=== PATIENT | male | born 1955 | race Caucasian/White ===

== ENCOUNTER → 2017-12-06 13:01 | Outpatient (CLI) | payer OTHER, SELFPAY ==
[2017-12-06 14:35] LABS: ALB/GLOB Ratio 0.9 RATIO (0.9-2.4); AST(SGOT) 32 U/L (15-37); Alanine Aminotransfer ALT/SGPT 39 U/L (16-61); Albumin, Serum 3.4 g/dL (3.2-5.0); Alkaline Phosphatase 79 U/L (45-117); Anion Gap 10 (5-15); BUN 16 mg/dL (7-18); Calcium,Total 8.5 mg/dL (8.5-10.1); Chloride 105 mmol/L (98-107); Cholesterol 146 mg/dL (200); Creatinine, Serum 1.07 mg/dL (0.70-1.30); EST Glomerular Filtration Rate 75 mL/min (>60); Est Glom Filt Rate - Afr Amer 90 mL/min (>60); Globulin 3.9 g/dL (2.2-4.2); Glucose 96 mg/dL (74-106); High Density Lipoprotein 35 mg/dL; Potassium 3.8 mmol/L (3.5-5.1); Protein, Total 7.3 g/dL (6.4-8.2); Sodium Level 141 mmol/L (136-145); Triglycerides 129 mg/dL; Very Low Density Lipoprotein 26 mg/dL (5-40)
== END ==
PROVIDERS: Family Provider Family Medicine; PCP Family Medicine; Visit Provider Family Medicine
DX: Z00.00 Encounter for general adult medical examination without abnormal findings (principal)
CPT/HCPCS: 36415; 80053; 80061

== ENCOUNTER 2017-12-12 07:06 | Day surgery (SDC) | payer OTHER, SELFPAY ==
[2017-12-12] VITALS (7 sets, daily range): BP systolic 93–119; BP diastolic 69–87; PULSE 67–79; RESP 16–18; TEMP 36.2–37; O2SAT 92–97; BMI 27.6
--- NOTE | 2017-12-12 08:30 | COLBX_PTH ---
PATIENT: SHANITA CABELLO LOC: EN U#:[id number] AGE/SX: 62/M ROOM: RE12/12/[address]: Dr. Art Byrd MD : [id number] BED: DIS: 12/12/2017 SPEC #: [id number] RECD: 12/12/17 10:37 STATUS: KATY MAL #: [id number] MICHELLE: 12/12/17 08:[address]: Art Byrd DEPT: SURGICAL PATHOLOGY RECD BY: Omar Stack ENTERED: 12/12/17 11:08 SP TYPE: COLON BX MARSHALL DR: Dr. Tal Nazario, DO Tissues: Rectum, NOS Procedures: Surgery Specimen Level IV HEADER OPERATION: Colonoscopy (MAC) PRE-OP DIAGNOSIS: Screening TISSUE SUBMITTED: Rectal biopsy MICROSCOPIC DIAGNOSIS Rectal biopsy: Hyperplastic polyp. SJ:[email or web address] 12/13/17 MICROSCOPIC DESCRIPTION Slides are reviewed. GROSS DESCRIPTION Received in fixative is one container labeled with the patient's name and designated rectal biopsy. The specimen consists of two irregular fragments of light aquino soft tissue that in aggregate measure 0.3 x 0.3 x 0.1 cm. The specimen is totally submitted in one cassette. / SJ:eleonora 12/12/17 TC:1 CPT: 17652
--- NOTE | 2017-12-12 09:00 | PCM.HP.STD ---
Problem List (1) Screen for colon cancer Status: Acute History of Present Illness Date of Admission: 12/12/17 The patient is a 62 year old M who presents today for screening colonoscopy. Past Medical History Past Medical History (Chronic Problems): Chronic Problems (Last Reviewed 12/12/17 @ 09:00 by Art Byrd MD) Kidney stones (Chronic) Abnormal glucose (Chronic) Medical History: Medical History (Last Reviewed 12/12/17 @ 09:00 by Art Byrd MD) Kidney stones (Chronic) N20.0 Abnormal glucose (Chronic) R73.09 Allergies Sulfa (Sulfonamide Antibiotics) Allergy (Unknown, Verified 12/12/17 07:22) Unknown Home Medications: Ambulatory Orders Medication Instructions Recorded hydrochlorothiazide 12.5 mg capsule 12.5 mg PO QAM 11/09/17 Smoking Status: Never smoker Tobacco Use: Non-smoker - *Family History Maternal Family History: Family History (Last Reviewed 11/15/17 @ 11:45 by Glendy Michel) Mother Diabetes Father Heart disease Brother Diabetes History Items: No pertinent history Review of Systems Cardiovascular: Denies: Chest Pain, Chest Pressure, Chest Tightness, Palpitations Respiratory: Denies: Cough, Hemoptysis, Shortness of breath at rest, Shortness of breath upon exertion, Wheezing Gastrointestinal: Denies: Abdominal Pain, Constipation, Diarrhea, Hematemesis, Nausea, Melena, Vomiting VTE Information - Inpt Only VTE Present on Admission: No VTE Mechan Device Prophylaxis: None VTE Pharm Prophylaxis ordered?: No Reason prophylaxis not ordered:: Treatment Not Indicated Patient Problems: Active and Suspected Problems (Last Reviewed 12/12/17 @ 09:00 by Art Byrd MD) Screen for colon cancer (Acute) - Physical Exam General: Alert, Oriented x3 Lungs: Clear to auscultation Cardiovascular: Regular rate, Regular Rhythm, No murmurs Abdomen: Bowel Sounds Present, Soft, Non Tender, Non-Distended Vital Signs Temp Pulse Resp BP Pulse Ox 98.6 F 77 16 113/87 H 97 12/12/17 07:24 12/12/17 07:24 12/12/17 07:24 12/12/17 07:24 12/12/17 07:24 Oxygen Delivery Method Room Air Weight: 208 lb 15.971 oz Body Mass Index (BMI) 27.6 Assessment/Plan All Active Problems (Last Reviewed 12/12/17 @ 09:00 by Art Byrd MD) Screen for colon cancer (Acute) Plan will be to perform a colonoscopy on him. Risk benefits are reviewed with him and he agrees to proceed.
--- NOTE | 2017-12-12 09:02 | PCM.OPRPT ---
Problem List (1) Screen for colon cancer Status: Acute Report of Operation Date of Procedure: 12/12/17 Pre-Operative Diagnosis: Z12.11 screening colonoscopy Post-Operative Diagnosis: Same Surgery/Procedure Performed:: Colonoscopy with cold biopsy Type of Anesthesia:: MAC Description of Procedure: Patient was brought into the endoscopy suite. Placed in the left lateral decubitus position. Patient was given graded anesthesia. Colonoscope was inserted into the rectum and directed through the sigmoid colon, descending colon, transverse colon, ascending colon, to the cecum. Operative findings: 1. Cecum: Normal appearance no mass lesions normal ileocecal valve. 2. Ascending colon: Normal appearance no mass lesions. 3. Transverse colon: Normal appearance no mass lesions 4. Descending colon: Normal appearance no mass lesions. 5. Sigmoid colon: Normal appearance no mass lesions. 6. Rectum: Just after the first fold was a small polyp I removed entirely with cold biopsy forceps I had good hemostasis. Scope was withdrawn digital rectal exam was performed showing a smooth prostate with no nodules and no masses in the anus. Patient will need to have another colonoscopy in 3 years. - Admit VTE Documentation VTE Present on Admission: No VTE Mechan Device Prophylaxis: None VTE Pharm Prophylaxis ordered?: No Reason prophylaxis not ordered:: Treatment Not Indicated
== END 2017-12-12 10:00 | disposition home or self-care (01) ==
LOC: EN 07:06 → AC 07:07
PROVIDERS: Family Provider Family Medicine; PCP Family Medicine; Visit Provider Surgery
PROC: 0DJD8ZZ Inspection of Lower Intestinal Tract, Via Natural or Artificial Opening Endoscopic (ICD-10-PCS; CPT 45378; principal; 2017-12-12 08:25)
DX: Z12.11 Encounter for screening for malignant neoplasm of colon (principal); D12.8 Benign neoplasm of rectum; Z87.442 Personal history of urinary calculi; Z79.899 Other long term (current) drug therapy
CPT/HCPCS: 45380; 88305; J7120